=== PATIENT | male | born 1950 | race Asian ===

== ENCOUNTER 2021-11-01 12:43 | Inpatient (IN) | payer MEDICARE, OTHER ==
[~2021-11-01] VITALS: Ht 160 cm; Wt 67.3 kg
[2021-11-01] MEDS ORDERED: FUROSEMIDE 40 MG/4 ML VIAL IVP ONE (13:00)
[2021-11-01 13:13] LABS: BASOPHILS % (AUTO) 0.7 % (0.0-2.0); EOSINOPHILS % (AUTO) 2.4 % (1.0-6.0); HEMATOCRIT 24.1 % (41-53); HEMOGLOBIN 8.5 g/dL (13.5-17.5); LYMPHOCYTES # (AUTO) 0.6 K/uL (1.0-4.8); LYMPHOCYTES % (AUTO) 6.7 % (22.0-44.0); MEAN CORPUSCULAR HEMOGLOBIN 31.8 pg (26.0-34.0); MEAN CORPUSCULAR VOLUME 91 fL (80-100); MONOCYTES # (AUTO) 1.2 K/uL (0.1-1.0); MONOCYTES % (AUTO) 12.9 % (2.0-9.0); NEUTROPHILS % (AUTO) 77.3 % (40.0-70.0); PLATELET COUNT (AUTO) 178 K/uL (150-450); RED BLOOD CELL COUNT(AUTO) 2.66 MIL/uL (4.50-5.90); RED CELL DISTRIBUTION WIDTH 14.6 % (11.5-14.5)
[2021-11-01 13:23] LABS: CALCIUM, TOTAL 8.4 mg/dL (8.8-10.5); CREATININE 5.41 mg/dL (0.60-1.30); POTASSIUM 5.1 mmol/L (3.5-5.1)
[2021-11-01 13:24] LABS: INR 1.1 (0.9-1.1); PROTHROMBIN TIME 11.4 SEC (9.4-11.6)
[2021-11-01 13:30] LABS: COVID AG,FIA SOURCE NASOPHARYNGEAL
[2021-11-01 13:47] LABS: ALBUMIN 3.3 g/dL (3.4-5.0); BILIRUBIN,TOTAL 0.4 mg/dL (0.1-1.0); MAGNESIUM 2.2 mg/dL (1.80-2.40); PHOSPHORUS 5.5 mg/dL (2.5-4.9); TOTAL PROTEIN, SERUM 6.9 g/dL (6.4-8.2)
[2021-11-01 13:49] LABS: INFLUENZA TYPE A NEGATIVE FOR TYPE A (NEGATIVE); INFLUENZA TYPE B NEGATIVE FOR TYPE B (NEGATIVE)
[2021-11-01] MEDS ORDERED: ONDANSETRON HCL 4 MG/2 ML VIAL IVP PRN ×2 (14:45→17:45)
[2021-11-01] MEDS ORDERED: ACETAMINOPHEN 325 MG TABLET PO PRN ×2 (14:45→17:45)
[2021-11-01] MEDS ORDERED: 0.9% SODIUM CHLORIDE 10 ML SYRINGE IVP PRN (14:45)
[2021-11-01 16:00] VITALS: BP 156/80
[2021-11-01] MEDS ORDERED: ZOLPIDEM TARTRATE 5 MG TABLET PO PRN (17:45)
[2021-11-01] MEDS ORDERED: HYDROCODONE/ACETAMINOPHEN 5-325 MG TABLET PO PRN (17:45)
[2021-11-01] MEDS ORDERED: MAGNESIUM HYDROXIDE SUSPENSION 30 ML UDCUP PO PRN (17:45)
[2021-11-01] MEDS ORDERED: MORPHINE SULFATE 2 MG/ML SYRINGE IVP PRN (17:45)
[2021-11-01] MEDS ORDERED: BISACODYL 10 MG RECTAL RECTAL SUPPOSITORY PR PRN (17:45)
[2021-11-01 18:00] VITALS: BP 154/69
[2021-11-01 20:00] VITALS: BP 152/79
[2021-11-01] MEDS: CARVEDILOL 6.25 MG TABLET PO SCH (21:20)
[2021-11-01] MEDS: DOCUSATE SODIUM 100 MG CAPSULE PO SCH (21:20)
[2021-11-01] MEDS: FUROSEMIDE 20 MG/2 ML VIAL IVP SCH (21:20)
[2021-11-01] MEDS: HEPARIN SODIUM,PORCINE 5,000 UNITS/ML VIAL SQ SCH (23:28)
[2021-11-02] VITALS: BP 144/71
[2021-11-02 04:00] VITALS: BP 133/67
[2021-11-02 04:47] LABS: EOSINOPHILS % (AUTO) 3.9 % (1.0-6.0); HEMATOCRIT 21.3 % (41-53); HEMOGLOBIN 7.3 g/dL (13.5-17.5); LYMPHOCYTES # (AUTO) 0.6 K/uL (1.0-4.8); LYMPHOCYTES % (AUTO) 11.5 % (22.0-44.0); MEAN CORPUSCULAR HEMOGLOBIN 30.8 pg (26.0-34.0); MEAN CORPUSCULAR HGB CONC 34.1 G/dL (31.0-37.0); MEAN CORPUSCULAR VOLUME 90 fL (80-100); NEUTROPHILS # (AUTO) 3.4 K/uL (1.8-7.7); NEUTROPHILS % (AUTO) 64.6 % (40.0-70.0); PLATELET COUNT (AUTO) 171 K/uL (150-450); RED BLOOD CELL COUNT(AUTO) 2.36 MIL/uL (4.50-5.90); RED CELL DISTRIBUTION WIDTH 14.3 % (11.5-14.5)
[2021-11-02 05:04] LABS: ALBUMIN 2.7 g/dL (3.4-5.0); BILIRUBIN,TOTAL 0.5 mg/dL (0.1-1.0); CALCIUM, TOTAL 8.3 mg/dL (8.8-10.5); CREATININE 5.25 mg/dL (0.60-1.30); POTASSIUM 4.5 mmol/L (3.5-5.1); TOTAL PROTEIN, SERUM 5.9 g/dL (6.4-8.2)
[2021-11-02] MEDS: HEPARIN SODIUM,PORCINE 5,000 UNITS/ML VIAL SQ SCH ×3 (07:27→23:53)
[2021-11-02 08:00] VITALS: BP 149/66
[2021-11-02] MEDS ORDERED: DEXTROSE 50%-WATER 25 GM/50 ML SYRINGE IVP PRN (09:00)
[2021-11-02] MEDS: DOCUSATE SODIUM 100 MG CAPSULE PO SCH ×3 (09:00→21:03)
[2021-11-02] MEDS: PANTOPRAZOLE SODIUM 40 MG DR TABLET PO SCH (09:06)
[2021-11-02] MEDS: FUROSEMIDE 20 MG/2 ML VIAL IVP SCH (09:06)
[2021-11-02] MEDS: CARVEDILOL 6.25 MG TABLET PO SCH ×2 (09:06→21:03)
[2021-11-02 12:00] VITALS: BP 148/71
[2021-11-02] MEDS: INSULIN LISPRO 100 UNITS/ML SQ PRN ×3 (12:59→21:59)
[2021-11-02 13:01] LABS: GLUCOMETER DEV NAME(LOC) AHU.; GLUCOSE,POINT OF CARE 101 MG/DL (70-110)
[2021-11-02 16:42] VITALS: BP 140/77
[2021-11-02 20:00] VITALS: BP 161/74
[2021-11-02 20:56] LABS: GLUCOSE,POINT OF CARE 164 MG/DL (70-110)
[2021-11-02 20:56] LABS: GLUCOSE,POINT OF CARE 217 MG/DL (70-110)
[2021-11-02] MEDS: FUROSEMIDE 40 MG/4 ML VIAL IVP SCH (21:03)
[2021-11-02 22:11] LABS: GLUCOSE,POINT OF CARE 201 MG/DL (70-110)
[2021-11-03] VITALS (7 sets, daily range): BP systolic 145–176; BP diastolic 65–81
[2021-11-03 07:18] LABS: EOSINOPHILS % (AUTO) 5.4 % (1.0-6.0); HEMATOCRIT 21.4 % (41-53); HEMOGLOBIN 7.4 g/dL (13.5-17.5); LYMPHOCYTES # (AUTO) 0.7 K/uL (1.0-4.8); LYMPHOCYTES % (AUTO) 12.4 % (22.0-44.0); MEAN CORPUSCULAR HEMOGLOBIN 31.3 pg (26.0-34.0); MEAN CORPUSCULAR HGB CONC 34.6 G/dL (31.0-37.0); MEAN CORPUSCULAR VOLUME 91 fL (80-100); MONOCYTES % (AUTO) 18.3 % (2.0-9.0); NEUTROPHILS # (AUTO) 3.4 K/uL (1.8-7.7); NEUTROPHILS % (AUTO) 62.9 % (40.0-70.0); PLATELET COUNT (AUTO) 208 K/uL (150-450); RED BLOOD CELL COUNT(AUTO) 2.36 MIL/uL (4.50-5.90); RED CELL DISTRIBUTION WIDTH 14.2 % (11.5-14.5)
[2021-11-03 07:31] LABS: CALCIUM, TOTAL 7.9 mg/dL (8.8-10.5); CREATININE 4.87 mg/dL (0.60-1.30); POTASSIUM 5.1 mmol/L (3.5-5.1)
[2021-11-03 07:43] LABS: % IRON SATURATION 24.6 % (30-44)
[2021-11-03] MEDS: FUROSEMIDE 40 MG/4 ML VIAL IVP SCH (08:04)
[2021-11-03] MEDS: HEPARIN SODIUM,PORCINE 5,000 UNITS/ML VIAL SQ SCH ×2 (08:04→16:10)
[2021-11-03] MEDS: DOCUSATE SODIUM 100 MG CAPSULE PO SCH ×3 (08:06→20:25)
[2021-11-03] MEDS: CARVEDILOL 6.25 MG TABLET PO SCH ×2 (08:06→20:24)
[2021-11-03] MEDS: PANTOPRAZOLE SODIUM 40 MG DR TABLET PO SCH (08:06)
[2021-11-03] MEDS: INSULIN LISPRO 100 UNITS/ML SQ PRN ×2 (12:13→20:26)
[2021-11-03] MEDS: SOD FERRIC GLUC COMPLX/SUCROSE 125 MG in SODIUM CHLORIDE 0.9% 100 ML IV SCH (14:14)
[2021-11-03] MEDS: HydrALAZINE HCL 25 MG TABLET PO SCH ×2 (16:09→20:23)
[2021-11-03] MEDS: BUMETANIDE 0.25 MG/ML 4 ML VIAL IVP SCH (20:23)
[2021-11-04 00:02] VITALS: BP 146/69
[2021-11-04] MEDS: HEPARIN SODIUM,PORCINE 5,000 UNITS/ML VIAL SQ SCH ×3 (00:14→15:16)
[2021-11-04 04:14] VITALS: BP 142/70
[2021-11-04 06:03] LABS: BASOPHILS % (AUTO) 1.1 % (0.0-2.0); EOSINOPHILS % (AUTO) 5.7 % (1.0-6.0); HEMATOCRIT 22.6 % (41-53); HEMOGLOBIN 7.9 g/dL (13.5-17.5); LYMPHOCYTES # (AUTO) 0.8 K/uL (1.0-4.8); LYMPHOCYTES % (AUTO) 16.1 % (22.0-44.0); MEAN CORPUSCULAR HEMOGLOBIN 31.5 pg (26.0-34.0); MEAN CORPUSCULAR HGB CONC 34.8 G/dL (31.0-37.0); MEAN CORPUSCULAR VOLUME 90 fL (80-100); MONOCYTES # (AUTO) 0.9 K/uL (0.1-1.0); MONOCYTES % (AUTO) 18.3 % (2.0-9.0); NEUTROPHILS # (AUTO) 2.9 K/uL (1.8-7.7); NEUTROPHILS % (AUTO) 58.8 % (40.0-70.0); PLATELET COUNT (AUTO) 236 K/uL (150-450); RED BLOOD CELL COUNT(AUTO) 2.51 MIL/uL (4.50-5.90); RED CELL DISTRIBUTION WIDTH 14.7 % (11.5-14.5)
[2021-11-04 06:15] LABS: CALCIUM, TOTAL 8.4 mg/dL (8.8-10.5); CREATININE 4.31 mg/dL (0.60-1.30); MAGNESIUM 2.3 mg/dL (1.80-2.40); PHOSPHORUS 4.7 mg/dL (2.5-4.9); POTASSIUM 5.1 mmol/L (3.5-5.1)
[2021-11-04 07:41] VITALS: BP 165/75
[2021-11-04] MEDS: CARVEDILOL 6.25 MG TABLET PO SCH (08:04)
[2021-11-04] MEDS: PANTOPRAZOLE SODIUM 40 MG DR TABLET PO SCH (08:04)
[2021-11-04] MEDS: DOCUSATE SODIUM 100 MG CAPSULE PO SCH (08:04)
[2021-11-04] MEDS: HydrALAZINE HCL 25 MG TABLET PO SCH (08:04)
[2021-11-04] MEDS: BUMETANIDE 0.25 MG/ML 4 ML VIAL IVP SCH (08:04)
[2021-11-04] MEDS ORDERED: EPOETIN ALFA 10,000 UNITS/ML VIAL SQ SCH (09:00)
[2021-11-04 11:40] VITALS: BP 158/70
[2021-11-04] MEDS: INSULIN LISPRO 100 UNITS/ML SQ PRN ×2 (12:07→18:22)
[2021-11-04] MEDS: SOD FERRIC GLUC COMPLX/SUCROSE 125 MG in SODIUM CHLORIDE 0.9% 100 ML IV SCH (15:16)
[2021-11-04 15:56] VITALS: BP 169/82
[2021-11-05 05:32] LABS: GLUCOMETER DEV NAME(LOC) 5N.1C; GLUCOSE,POINT OF CARE 221 MG/DL (70-110)
[2021-11-05 05:32] LABS: GLUCOMETER DEV NAME(LOC) 5N.1C; GLUCOSE,POINT OF CARE 140 MG/DL (70-110)
[2021-11-05 05:32] LABS: GLUCOMETER DEV NAME(LOC) 5N.1C; GLUCOSE,POINT OF CARE 168 MG/DL (70-110)
[2021-11-05 05:32] LABS: GLUCOMETER DEV NAME(LOC) 5N.1C; GLUCOSE,POINT OF CARE 270 MG/DL (70-110)
[2021-11-05 06:27] LABS: GLUCOMETER DEV NAME(LOC) 5S.2B; GLUCOSE,POINT OF CARE 126 MG/DL (70-110)
[2021-11-05 06:32] LABS: GLUCOMETER DEV NAME(LOC) 5N.3; GLUCOSE,POINT OF CARE 271 MG/DL (70-110)
[2021-11-05 08:26] LABS: GLUCOMETER DEV NAME(LOC) 5S.1B; GLUCOSE,POINT OF CARE 126 MG/DL (70-110)
== END 2021-11-04 19:25 | disposition short-term general hospital (02) | DRG 280 ==
LOC: EMS 12:43 → ICU 15:45 → 5S 11-02 21:15
PROVIDERS: ADMIT Internal Medicine; ATTEND Internal Medicine
PROC: 5A09357 Assistance with Respiratory Ventilation, Less than 24 Consecutive Hours, Continuous Positive Airway Pressure (ICD-10-PCS; principal; 2021-11-01)
DX: I21.4 Non-ST elevation (NSTEMI) myocardial infarction (principal); I50.33 Acute on chronic diastolic (congestive) heart failure; E43 Unspecified severe protein-calorie malnutrition; J96.01 Acute respiratory failure with hypoxia; N18.6 End stage renal disease; I13.2 Hypertensive heart and chronic kidney disease with heart failure and with stage 5 chronic kidney disease, or end stage renal disease; N17.9 Acute kidney failure, unspecified; E78.5 Hyperlipidemia, unspecified; E11.22 Type 2 diabetes mellitus with diabetic chronic kidney disease; D63.8 Anemia in other chronic diseases classified elsewhere; E11.21 Type 2 diabetes mellitus with diabetic nephropathy; Z20.822 Contact with and (suspected) exposure to COVID-19; I25.10 Atherosclerotic heart disease of native coronary artery without angina pectoris; Z95.1 Presence of aortocoronary bypass graft; Z79.899 Other long term (current) drug therapy; Z88.8 Allergy status to other drugs, medicaments and biological substances; Z68.26 Body mass index [BMI] 26.0-26.9, adult
CPT/HCPCS: 71045; 80048; 80053; 82550; 82962; 83540; 83550; 83735; 83880; 84100; 84484; 85025; 85610; 85730; 87081; 87804; 93005; 93306; 94660; 99291; G0378; J0885; J1644; J1940; J2916; J3490; J7050; 36415-L1; 36415-TC